=== PATIENT | female | born 1995 | race Caucasian/White ===

== ENCOUNTER 2022-09-23 09:19 | Outpatient (CLI) | payer MEDICAID, SELFPAY ==
--- NOTE | 2022-09-23 09:34 | XRR_ITS ---
PROCEDURE INFORMATION: Exam: XR Cervical Spine Exam date and time: 09/23/2022 9:43 AM Age: 27 years old Clinical indication: Condition or disease; Scoliosis TECHNIQUE: Imaging protocol: Radiologic exam of the cervical spine. Views: 2 or 3 views. COMPARISON: No relevant prior studies available. FINDINGS: Bones/joints: Normal. No acute fracture. Normal alignment. Soft tissues: Unremarkable. XR/XR cervical spine 3V* [id number] IMPRESSION: No acute findings.
--- NOTE | 2022-09-23 09:34 | XRR_ITS ---
PROCEDURE INFORMATION: Exam: XR Thoracic Spine Exam date and time: 09/23/2022 9:43 AM Age: 27 years old Clinical indication: Condition or disease; Other: Scoliosis TECHNIQUE: Imaging protocol: Radiologic exam of the thoracic spine. Views: 3 views. COMPARISON: No relevant prior studies available. FINDINGS: Bones/joints: Normal. No acute fracture. Normal alignment. Dorsal spine dextroscoliosis. Andujar angle is 19 degrees T7-T11. Soft tissues: Unremarkable. XR/XR thoracic spine 2V [id number] IMPRESSION: 1. No acute findings. 2. Dorsal spine dextroscoliosis Andujar angle 19 degrees
--- NOTE | 2022-09-23 09:35 | XRR_ITS ---
PROCEDURE INFORMATION: Exam: XR Lumbosacral Spine Exam date and time: 09/23/2022 9:43 AM Age: 27 years old Clinical indication: Condition or disease; Scoliosis TECHNIQUE: Imaging protocol: Radiologic exam of the lumbosacral spine. Views: 2 or 3 views. COMPARISON: No relevant prior studies available. FINDINGS: Bones/joints: Normal. No acute fracture. There is mild dorsolumbar levocurvature which may reflect positional artifact. Soft tissues: There is a IUD in place XR/XR lumbar spine 2-3V* [id number] IMPRESSION: No acute findings.
== END 2022-09-23 09:20 | disposition home or self-care (01) ==
PROVIDERS: PCP Nurse Practitioner Family; Visit Provider Nurse Practitioner Family
DX: M41.9 Scoliosis, unspecified (principal); M41.84 Other forms of scoliosis, thoracic region
CPT/HCPCS: 72040; 72070; 72100

== ENCOUNTER 2022-11-12 05:03 | Emergency (ER) | payer MEDICAID, SELFPAY ==
[2022-11-12 05:09] VITALS: BMI 45.0
--- NOTE | 2022-11-12 05:09 | W.ED.EAR ---
HPI - Ear Problem General: Chief complaint: Ear Stated complaint: Right ear pian Time Seen by Provider: 11/12/22 05:09 Source: patient Mode of arrival: ambulatory History of Present Illness: 27-year-old female presents emergency room complaining of right ear pain with drainage. She said a lot of swelling of the pinna. Exquisitely painful as well. Even to touch. She was seen yesterday by nurse practitioner primary care clinic she was given shots and prescribed amoxicillin. She says the pain is persistent. No fever sweats or chills. Complaint: ear pain and ear discharge Location: right ear Duration: constant Severity: severe Exacerbating factors: chewing and palpation Discharge from ear: yes - purulent Associated symptoms: Reports ear or mastoid pain and external ear pain; Denies fever(s) Review of Systems Const: Denies: fever(s) or chills ENMT: Reports: ear or mastoid pain and ear discharge Physical Exam Const: COMMON NORMALS: no acute distress GENERAL APPEARANCE: cooperative and comfortable ORIENTATION/CONSCIOUSNESS: Yes awake, Yes oriented to person, Yes oriented to place and Yes oriented to time HENMT: COMMON NORMALS: normocephalic, atraumatic and hearing grossly normal bilaterally HEAD & SCALP: normocephalic and atraumatic EXTERNAL EAR: Yes external ear abnormal Abnormal external ear present: auricular tenderness EXTERNAL AUDITORY CANAL: Abnormal EAC present EAC laterality: right Details: erythema, edema, EAC tenderness and otic discharge TYMPANIC MEMBRANE: unable to visualize TM Resp: COMMON NORMALS: normal respiratory effort, No retractions, No use of accessory muscles and clear to auscultation bilaterally AUSCULTATION: clear to auscultation bilaterally Cardio: COMMON NORMALS: regular rate, regular rhythm and No murmurs present (Cardio) RATE: regular rate RHYTHM: regular rhythm Extremity: COMMON NORMALS: normal to inspection, capillary refill normal, no clubbing, cyanosis or edema, no calf tenderness and no pedal edema Neuro: SENSORIUM/ORIENTATION: Yes oriented to person, Yes oriented to place and Yes oriented to time Skin: COMMON NORMALS: no rashes or lesions noted GENERAL SKIN EXAM: no rashes or lesions noted MDM - Ear Medical Decision Making Significant amount of swelling in the right external auditory canal unable to visualize the TM at all. Wick placed in the right external auditory canal. Expanded with normal saline. Patient tolerated well. Discharged home on Corticosporin attic drops hydrocodone and Cipro advised patient to stop the amoxicillin. Medical Records I reviewed the patient's medical records. Lab Data I reviewed the patient's lab results. Discharge Plan Discharge Patient Disposition: Home Clinical Impression: Otitis externa of right ear Condition: Stable Prescriptions: New hydrocodone-acetaminophen 5-325 mg tablet 1 tab PO Q6H PRN (Reason: pain) Qty: 20 0RF Cipro 500 mg tablet 500 mg PO BID Qty: 10 0RF [id number]-KD 3.5-10,000-10 mg-unit-mg/mL drops,suspension 4 drp ophthalmic (eye) Q6H Qty: 7.5 0RF Rx Instructions: 4 drops in the left ear 4 times daily Discharge Orders: Discharge ED (Routine); Ordered 11/12/22 Ordered By: Andi Beckett Referrals: Lizz Bonilla APN [Primary Care Provider] - Discharge Diet: Usual diet Discharge Activity: Increase activity as tolerated Patient Instructions: Otitis Externa - Adult, Swimmer's Ear (ED), Opioid Safety, Pain Management Activity Restrictions/Additional Instructions: event planning manager will make arrangements for follow-up with Dr. Garcia the learning and development associate. Coding Level of Care Code ED Salvage Mechanic for Francois Alves
[2022-11-12 05:13] VITALS: BP 173/98; PULSE 102; RESP 16; TEMP 37.2; O2SAT 99
[2022-11-12] MEDS: HYDROcodone-acetaminophen 5-325 mg Tablet 1 TAB PO (05:29)
[2022-11-12] MEDS: ciprofloxacin 500 mg Tablet PO (05:29)
[2022-11-12 05:35] VITALS: BP 173/96; PULSE 89; RESP 20; O2SAT 99
--- NOTE | 2022-11-12 08:53 | DCPLANNER ---
Addendum entered by Christine Wilkerson 11/14/22 12:37: Patient had a follow up appointment scheduled with ENT for 11.14.22 - patient did attend appointment. Original Note: junior account manager had message to schedule a follow up appointment for patient with ENT. junior account manager sent patients information to the front office staff at ENT. Patients information will be printed and reviewed. Clinic will call patient with appointment information.
== END 2022-11-12 05:40 | disposition home or self-care (01) ==
PROVIDERS: Emergency Provider Family Medicine; PCP Nurse Practitioner Family
DX: H60.91 Unspecified otitis externa, right ear (principal)
CPT/HCPCS: 99283